=== PATIENT | female | born 1940 | race Caucasian/White ===

== ENCOUNTER → 2017-02-22 | Outpatient (REF) | payer MEDICARE, MEDICAID ==
[2017-02-22 16:47] LABS: ALBUMIN 3.6 GM/DL (3.2-5.2); ALBUMIN/GLOBULIN RATIO 0.92 (1.00-1.93); ALKALINE PHOSPHATASE 90 U/L (45-117); ALT/SGPT 10 U/L (12-78); ANION GAP 6 MEQ/L (8-16); AST/SGOT 10 U/L (15-37); BILIRUBIN,TOTAL 0.2 MG/DL (0.2-1.0); BLOOD UREA NITROGEN 13 MG/DL (7-18); CALCIUM LEVEL 8.9 MG/DL (8.8-10.2); CARBON DIOXIDE LEVEL 31 MEQ/L (21-32); CHLORIDE LEVEL 106 MEQ/L (98-107); CREATININE FOR GFR 0.77 MG/DL (0.55-1.02); GLOMERULAR FILTRATION RATE > 60.0 (>39); GLUCOSE, FASTING 79 MG/DL (83-110); POTASSIUM SERUM 4.6 MEQ/L (3.5-5.1); SODIUM LEVEL 143 MEQ/L (136-145); TOTAL PROTEIN 7.5 GM/DL (6.4-8.2)
== END ==
LOC: M SFHCCLAY 11:03
PROVIDERS: ATTEND Family Medicine
DX: E78.5 Hyperlipidemia, unspecified (principal)
CPT/HCPCS: 80053; G0463

== ENCOUNTER → 2017-12-31 | Outpatient (CLI) | payer MEDICARE, OTHER, MEDICAID | LOC: M RAD 13:18 | DX: M79.601 Pain in right arm (principal); M19.011 Primary osteoarthritis, right shoulder | CPT/HCPCS: 73030 ==

== ENCOUNTER → 2018-04-29 | Outpatient (REF) | payer MEDICARE, MEDICAID ==
[2018-04-29 16:37] LABS: BASO # 0.1 10^3/uL (0.0-0.2); BASO % 0.9 % (0.0-1.0); EOS # 0.2 10^3/uL (0.0-0.50); EOS % 2.8 % (0.0-3.0); HEMATOCRIT 41.6 % (36.0-47.0); HEMOGLOBIN 12.1 g/dl (12.0-15.5); IMMATURE GRANULOCYTE % 0.2 % (0-3.0); LYMPH # 1.6 10^3/uL (1.5-4.5); LYMPH % 28.1 % (24.0-44.0); MEAN CORPUSCULAR HEMOGLOBIN 26.1 pg (27.0-33.0); MEAN CORPUSCULAR HGB CONC 29.1 g/dl (32.0-36.5); MEAN CORPUSCULAR VOLUME 89.8 fl (80.0-96.0); MONO # 0.5 10^3/uL (0.0-0.8); MONO % 8.5 % (0.0-5.0); NEUTROPHILS # 3.4 10^3/uL (1.8-7.7); NEUTROPHILS % 59.5 % (36.0-66.0); PLATELET COUNT, AUTOMATED 240 10^3/uL (150-450); RED BLOOD COUNT 4.63 10^6/uL (4.00-5.40); RED CELL DISTRIBUTION WIDTH 15.3 % (11.5-14.5); WHITE BLOOD COUNT 5.6 10^3/uL (4.0-10.0)
[2018-04-29 16:54] LABS: ALBUMIN 3.5 GM/DL (3.2-5.2); ALKALINE PHOSPHATASE 94 U/L (45-117); ALT/SGPT 12 U/L (12-78); ANION GAP 6 MEQ/L (8-16); AST/SGOT 10 U/L (7-37); BILIRUBIN,TOTAL 0.4 MG/DL (0.2-1.0); BLOOD UREA NITROGEN 15 MG/DL (7-18); CALCIUM LEVEL 8.8 MG/DL (8.8-10.2); CARBON DIOXIDE LEVEL 31 MEQ/L (21-32); CHLORIDE LEVEL 104 MEQ/L (98-107); CREATININE FOR GFR 0.88 MG/DL (0.55-1.30); GLOMERULAR FILTRATION RATE > 60.0 (>39); GLUCOSE, FASTING 105 MG/DL (70-100); POTASSIUM SERUM 4.4 MEQ/L (3.5-5.1); SODIUM LEVEL 141 MEQ/L (136-145); TOTAL PROTEIN 7.4 GM/DL (6.4-8.2)
== END ==
LOC: M SFHCCLAY 11:25
DX: E78.5 Hyperlipidemia, unspecified (principal); J44.9 Chronic obstructive pulmonary disease, unspecified
CPT/HCPCS: 80053

== ENCOUNTER 2018-12-16 09:30 | Inpatient (IN) | payer MEDICARE, MEDICAID ==
[~2018-12-16] VITALS: Ht 162.6 cm; Wt 58.4 kg
--- NOTE | 2018-12-16 10:04 | REP ---
CT brain without contrast: History: CVA. No comparison study. Findings: Digital preliminary tumblers supervisor radiograph is unremarkable. The patient is edentulous. Bone window settings demonstrate an intact bony calvarium. There is heavy vascular calcification in the distal carotid and distal vertebral arteries bilaterally. There is thickening and sclerosis around the partially opacified left sphenoid sinus consistent with chronic left sphenoid sinusitis. Visualized paranasal sinuses are otherwise clear. No acute intraorbital abnormality is seen. There is fairly advanced diffuse cerebral atrophy. There is no evidence of intracranial hemorrhage. No extra-axial fluid collection is seen. No acute infarct, mass, or midline shift is seen. Impression: Moderate diffuse atrophy. Advanced vascular calcification. Evidence of chronic left sphenoid sinusitis. No acute intracranial abnormality. Electronically Signed by Guille Valles MD 12/16/2018 10:04 A
--- NOTE | 2018-12-16 10:18 | REP ---
Single view chest x-ray: AP sitting film. History: CVA. Comparison study: Left rib series from December 13, 2015. Findings: The lungs are symmetrically aerated and clear. Heart is not enlarged. The aorta is tortuous and calcific. There is minimal linear fibrosis in the left base unchanged. Pulmonary vasculature is not increased. Impression: No active disease. Electronically Signed by Guille Valles MD 12/16/2018 10:09 A
[2018-12-16] MEDS ORDERED: VENL75TA2 PO (10:55)
[2018-12-16] MEDS ORDERED: RANI1TAB38 PO (10:55)
[2018-12-16] MEDS ORDERED: QUET1TAB7 PO (10:55)
[2018-12-16] MEDS ORDERED: LORA0.5T11 PO (10:55)
[2018-12-16] MEDS ORDERED: MEMA1TAB2 PO (10:55)
[2018-12-16] MEDS ORDERED: ARIC1TAB PO (10:55)
[2018-12-16] MEDS ORDERED: BAYE325T12 PO (10:55)
[2018-12-16] MEDS ORDERED: SIMV40TA2 PO (10:55)
[2018-12-16 11:38] LABS: BASO % 0.9 % (0.0-1.0); EOS # 0.1 10^3/uL (0.0-0.50); EOS % 1.7 % (0.0-3.0); HEMATOCRIT 26.5 % (36.0-47.0); LYMPH # 0.6 10^3/uL (1.5-4.5); LYMPH % 15.1 % (24.0-44.0); MEAN CORPUSCULAR HEMOGLOBIN 18.6 pg (27.0-33.0); MEAN CORPUSCULAR HGB CONC 26.4 g/dl (32.0-36.5); MEAN CORPUSCULAR VOLUME 70.3 fl (80.0-96.0); MONO # 0.4 10^3/uL (0.0-0.8); MONO % 9.4 % (0.0-5.0); NEUTROPHILS # 3.1 10^3/uL (1.8-7.7); NEUTROPHILS % 72.7 % (36.0-66.0); PLATELET COUNT, AUTOMATED 289 10^3/uL (150-450); RED BLOOD COUNT 3.77 10^6/uL (4.00-5.40); WHITE BLOOD COUNT 4.2 10^3/uL (4.0-10.0)
[2018-12-16 11:47] LABS: INR 1.07
[2018-12-16 12:15] LABS: BLOOD UREA NITROGEN 10 MG/DL (7-18); CALCIUM LEVEL 8.7 MG/DL (8.8-10.2); CARBON DIOXIDE LEVEL 27 MEQ/L (21-32); CHLORIDE LEVEL 109 MEQ/L (98-107); CK-MB VALUE MASS < 1.0 NG/ML (<3.6); CPK CREATINE PHOSPHOKINASE 32 U/L (26-192); CREATININE FOR GFR 0.71 MG/DL (0.55-1.30); GLOMERULAR FILTRATION RATE > 60.0 (>32); GLUCOSE, FASTING 104 MG/DL (70-100); MB/CK RELATIVE INDEX 3.12 (< OR =4); POTASSIUM SERUM 3.9 MEQ/L (3.5-5.1); SODIUM LEVEL 143 MEQ/L (136-145); TROPONIN I < 0.02 NG/ML (< 0.10)
[2018-12-16 14:33] LABS: FERRITIN 10 NG/ML (8-252); IRON (FE) 12 UG/DL (50-170); PERCENT SATURATION 3.1 % (13.2-45.0); TOTAL IRON BINDING CAPACITY 386 UG/DL (250-450)
[2018-12-16 14:46] LABS: VITAMIN B12 LEVEL 225 PG/ML
[2018-12-16 15:52] LABS: HEMATOCRIT 25.5 % (36.0-47.0); MEAN CORPUSCULAR HEMOGLOBIN 19.2 pg (27.0-33.0); MEAN CORPUSCULAR HGB CONC 26.7 g/dl (32.0-36.5); MEAN CORPUSCULAR VOLUME 71.8 fl (80.0-96.0); PLATELET COUNT, AUTOMATED 264 10^3/uL (150-450); RED BLOOD COUNT 3.55 10^6/uL (4.00-5.40); WHITE BLOOD COUNT 3.8 10^3/uL (4.0-10.0)
[2018-12-16 15:56] LABS: HEMOGLOBIN 6.8 g/dl (12.0-15.5)
[2018-12-16 16:22] VITALS: BP 146/64
[2018-12-16] MEDS ORDERED: CYANOCOBALAMIN 1,000 MCG/ML VIAL (J3420) IM SCH (18:00)
--- NOTE | 2018-12-16 20:18 | REP ---
Bilateral carotid artery duplex ultrasound: Peak flow velocity analysis: RIGHT LEFT ICA Peak flow velocity cm/sec 120 138 ICA Diastolic flow velocity cm/sec 21 21 ICA/CCA Ratio 2.24 1.32 ECA Peak flow velocity cm/sec 115 116 CCA Peak flow velocity cm/sec 66.5 90.0 The peak flow velocities are in the normal range bilaterally. However, there is significant stenosis of the bulbs bilaterally from large atheromatous plaquing. There are no standard peak flow velocity values for the bulb, however ,on the 2-D and color Doppler images there appears to be severe stenosis in the bulbs bilaterally, more severe on the right than the left . Consider CTA or MRA for further evaluation. No other significant stenoses are identified. The left ICA is tortuous. The study is technically difficult because of the patient's inability to follow directions and patient combativeness. Impression: Severe stenosis in the bulbs bilaterally, more severe on the right than the left. Consider follow-up MRA or CTA for further evaluation. Electronically Signed by Arvind Hendrickson MD 12/16/2018 08:09 P
[2018-12-16] MEDS ORDERED: DONEPEZIL 5 MG TAB PO SCH (21:00)
[2018-12-16] MEDS ORDERED: SIMVASTATIN 40 MG TAB PO SCH (21:00)
--- NOTE | 2018-12-16 21:37 | ECHO ---
DATE OF PROCEDURE: 12/16/2018 REFERRING PHYSICIAN: Dr. Helen Jones INDICATION: Syncope. Height 163 cm, weight 60 kg. DIMENSIONS: IVS: 1.3 LV: 4.0 LVPW: 1.3 LA: 3.3 Aorta: 3.2 IVC: 0.8 Mitral E wave velocity: 88 A wave: 120 E prime septal: 7.0 E prime lateral: 8.9 FINDINGS: The study is of fair technical quality. The patient is in sinus rhythm. Left ventricle is normal size and has hyperdynamic contractility, I estimate left ventricular ejection fraction (LVEF) 65-70%. I cannot reliably rule out segmental wall motion abnormalities because only apical views were of good quality and consequently not all cardiac leigh were well seen. Right ventricle does not appear grossly enlarged. Left atrium is at least mildly enlarged, right atrium was poorly visualized but grossly appears normal. Aortic valve is heavily sclerotic. There are no significant restriction of mobility based on 2D views. There is severe posterior mitral leaflet prolapse. Mobility of leaflets seems preserved. Tricuspid valve was poorly visualized but grossly appears normal. Pulmonic valve was not well seen. No pericardial effusion is noted. Inferior vena cava is of small caliber. Aortic root is normal. Aortic arch was not well seen. Abdominal aorta appears grossly normal. Doppler interrogation of aortic valve reveals mild insufficiency and no significant stenosis. There is possibly severe mitral insufficiency with very eccentric MR jet. There is [id number] tricuspid insufficiency. Calculated pulmonary artery pressure is around 30 corresponding to mildly elevated pulmonary artery pressure. Mitral inflow pattern and tissue Doppler imaging of mitral annulus revealed grade 1 diastolic dysfunction. CONCLUSIONS: 1. Study is of rather poor technical quality with only apical views being good. 2. Normal left ventricular (LV) size with hyperdynamic LV systolic function and grade 1 diastolic dysfunction. 3. Aortic sclerosis with no significant stenosis and mild insufficiency. 4. Severe posterior mitral leaflet prolapse with probably severe mitral insufficiency. 5. Normal central venous pressure. 6. Probably mild pulmonary hypertension. COMMENT: Subacute bacterial endocarditis (SBE) prophylaxis is not recommended. Study does not provide obvious explanation for syncopal event. If the patient is symptomatic, then further evaluation for mitral insufficiency should be pursued provided the patient is still deemed to be a surgical candidate.
[2018-12-16 22:00] VITALS: BP 158/64
[2018-12-16] MEDS: MEMANTINE 5MG TABLET (NAMENDA) PO SCH (23:25)
[2018-12-16] MEDS: QUEtiapine FUMARATE 25 MG TAB PO SCH (23:25)
[2018-12-16] MEDS: VENLAFAXINE 37.5 MG TAB PO SCH (23:25)
--- NOTE | 2018-12-17 05:44 | ECGEPIP ---
[facility] - ED Test Date: 2018-12-16 Pat Name: CHRISTIANA MINER Department: Room: - Gender: Female Inspector Raw Quartz: elissa : 1940 Requested By: Keyla Mora Order Number: [id number] Reading MD: Connor Lomas Measurements Intervals [place] Rate: 90 P: 63 MN: 145 QRS: QRSD: 78 T: QT: 368 QTc: 451 Interpretive Statements SINUS RHYTHM WITH OCCASIONAL VENTRICULAR PREMATURE COMPLEXES POSSIBLE LEFT ATRIAL ENLARGEMENT POOR R WAVE PROGRESSION MINIMAL ST DEPRESSION NO PRIORS FOR COMPARISON Electronically Signed on 12-17-2018 5:43:44 EDT by Connor Lomas
[2018-12-17 06:00] VITALS: BP 131/88
--- NOTE | 2018-12-17 06:10 | HPEPDOC ---
General Date of Admission Dec 16, 2018 at 13:46 Date of Service: Dec 16, 2018 Chief Complaint The patient is a 78-year-old female admitted with a reason for visit of Anemia Syncope And Collapse. Source: Family, RN/MD, Old records, Caregiver Exam Limitations: Dementia Severity: Moderate History of Present Illness 78 year old female with dementia, hyperlipidemia, COPD, anxiety and depression was brought in from [facility] day care for a presyncopal episode that she had there. As per daughter who was at bedside said that over the past 2 days the patient has been very tired, sleepy . She also has been refusing to eat.Prior to that sh pilar was in her usual state of health. Thee has been no overt bleeding, no black tarry stools, no hematochezia, no vaginal bleeding , no hematuria. There has been no fever or chills, no vomiting or diarrhea. She went to her [facility] adult day care today as usual . As per staff there she was noted to be pale and she almost passed out when she stood up but they were able to grab her so she did not fall. They lowered her to the floor. There was no injury. Then she was brought to the ED. The patient denied any complaints. She did not know where she was. When i told her that she is in the hospital she was very surprised and asked why she was here. She says she just feels sleepy and cold and wanted to sleep. She denied and dizziness or light headedness. As per daughter she is ambulatory, recognizes family, able to eat by herself and eats regular food. In the ED she was found to be anemic with an Hb of 7.0 repeat one was 6.8 which was down from 12 last year. She was admitted for syncope possibly due to symptomatic anemia. Home Medications Scheduled Aspirin (Aspirin) 325 Mg Tablet, 325 MG PO DAILY, (Reported) Cyanocobalamin (Vitamin B-12) (Vitamin B-12) 250 Mcg Tablet, 1 TAB PO DAILY Donepezil HCl (Aricept) 5 Mg Tablet, 5 MG PO QHS, (Reported) Ferrous Sulfate (Ferrous Sulfate) 325 Mg Tablet.dr, 325 MG PO BID Memantine HCl (Memantine HCl) 10 Mg Tablet, 10 MG PO BID, (Reported) Quetiapine Fumarate (Quetiapine Fumarate) 25 Mg Tablet, 25 MG PO BID, (Reported) Ranitidine Hcl (Ranitidine HCl) 150 Mg Tablet, 1 TAB PO DAILY, (Reported) Simvastatin (Simvastatin) 40 Mg Tablet, 40 MG PO QHS, (Reported) Venlafaxine HCl (Venlafaxine HCl) 75 Mg Tablet, 75 MG PO BID, (Reported) Scheduled PRN Lorazepam (Lorazepam) 0.5 Mg Tablet, 0.5 MG PO Q6H PRN for ANXIETY, (Reported) Allergies Coded Allergies: No Known Allergies (Unverified , 12/16/18) Past Medical History Medical History dementia, hyperlipidemia, COPD, anxiety and depression Surgical History AAA REPAIR- ENDOGRAFT- DR. ORELLANA 2013 CHOLECYSTECTOMY X 2 Family History FATHER: , UNKNOWN MOTHER: 83 YRS, BREAST CANCER, [place], DIAGNOSEDWITH HYPERTENSION, HEART DISEASE, PSYCHIATRIC CONDITIONS, OTHER SIBLINGS: 79 YRS, [place] SON: ALIVE, DIAGNOSED WITH DIABETES, HYPERTENSION, HEART DISEASE DAUGHTER: ALIVE, DIAGNOSED WITH HYPERTENSION Social History * Smoker: quit greater than 1 year Alcohol: Denies Drugs: denies A-FIB/CHADSVASC A-FIB History Current/History of A-Fib/PAF?: No Review of Systems Constitutional: Reports: Weakness, Fatigue, Lethargy; Denies: Chills, Fever, Malaise, Night Sweats Eyes: Denies: Pain, Vision change ENT: Denies: Head Aches, Ear Pain, Dysphagia Skin: Reports: Other (pale); Denies: Rash, Lesions, Jaundice, Bruising, Itching, Dry, Breakdown, Nail Changes Pulmonary: Denies: Dyspnea, Cough Cardiovascular: Denies: Chest Pain, Palpitations, Orthopnea, Paroxysmal Noc. Dyspnea, Lt Headedness Gastrointestinal: Denies: Nausea, Vomiting, Abdominal Pain, Diarrhea Genitourinary: Denies: Dysuria, Frequency, Incontinence, Retention Hematologic: Denies: Bruising, Bleeding Excessively Psych: Reports: Anxiety, Depression, Memory Issues Physical Examination General Exam: Positive: Alert, Cooperative, No Acute Distress Eye Exam: Positive: PERRLA, Conjunctiva & lids normal, EOMI; Negative: Sclera icteric ENT Exam: Positive: Atraumatic, Mucous membr. moist/pink, Pharynx Normal Neck Exam: Positive: Supple; Negative: JVD, thyromegaly Chest Exam: Positive: Clear to auscultation, Normal air movement Heart Exam: Positive: Rate Normal, Regular Rhythm, Normal S1, Normal S2; Negative: Murmurs, Rubs Telemetry: Positive: No significant arrhythmia Abdomen Exam: Positive: Normal bowel sounds, Soft; Negative: Tenderness, Hepatospenomegaly Extremity Exam: Positive: Normal pulses; Negative: Clubbing, Cyanosis, Edema Skin Exam: Positive: Nl turgor and temperature; Negative: Breakdown, Lesion Neuro Exam: Positive: Normal Speech, Strength at 5/5 X4 ext, Normal Tone, Sensation Intact Vital Signs Vital Signs Date Time Temp Pulse Resp B/P (MAP) Pulse Ox O2 Delivery O2 Flow Rate FiO2 12/16/18 15:03 94 16 136/75 (95) 94 Room Air 12/16/18 15:03 98.5 Laboratory Data Labs 24H Laboratory Tests 2 12/16/18 10:58: Bedside Glucose (Misc Panel) 114H 12/16/18 11:25: Anion Gap 7L, Glomerular Filtration Rate > 60.0, Blood Urea Nitrogen 10, Creatinine 0.71, Sodium Level 143, Potassium Level 3.9, Chloride Level 109H, Carbon Dioxide Level 27, Calcium Level 8.7L, Total Creatine Kinase 32, Iron Level 12L, Total Iron Binding Capacity 386, Transferrin % Saturation 3.1L, Ferritin 10, Creatine Kinase MB < 1.0, Creatine Kinase MB Relative Index 3.12, Troponin I < 0.02, Vitamin B12 Level 225, Folate 21.0 12/16/18 11:26: Immature Granulocyte % (Auto) 0.2, White Blood Count 4.2, Red Blood Count 3.77L, Hemoglobin 7.0L, Hematocrit 26.5L, Mean Corpuscular Volume 70.3L, Mean Corpuscular Hemoglobin 18.6L, Mean Corpuscular Hemoglobin Concent 26.4L, Red Cell Distribution Width 18.1H, Platelet Count 289, Neutrophils (%) (Auto) 72.7H, Lymphocytes (%) (Auto) 15.1L, Monocytes (%) (Auto) 9.4H, Eosinophils (%) (Auto) 1.7, Basophils (%) (Auto) 0.9, Neutrophils # (Auto) 3.1, Lymphocytes # (Auto) 0.6L, Monocytes # (Auto) 0.4, Eosinophils # (Auto) 0.1, Basophils # (Auto) 0.0, Nucleated Red Blood Cells % (auto) 0.0, Prothrombin Time 14.0, Prothromb Time International Ratio 1.07, Activated Partial Thromboplast Time 24.0L CBC/BMP Laboratory Tests 12/16/18 11:25 Calcium Level 8.7 L, Total Creatine Kinase 32 12/16/18 11:26 Red Blood Count 3.77 L, Mean Corpuscular Volume 70.3 L, Mean Corpuscular Hemoglobin 18.6 L, Mean Corpuscular Hemoglobin Concent 26.4 L, Red Cell Distribution Width 18.1 H, Neutrophils (%) (Auto) 72.7 H, Lymphocytes (%) (Auto) 15.1 L, Monocytes (%) (Auto) 9.4 H, Eosinophils (%) (Auto) 1.7, Basophils (%) (Auto) 0.9, Neutrophils # (Auto) 3.1, Lymphocytes # (Auto) 0.6 L, Monocytes # (Auto) 0.4, Eosinophils # (Auto) 0.1, Basophils # (Auto) 0.0 Assessment/Plan 78 year old female with dementia, hyperlipidemia, COPD, anxiety and depression was brought in from [facility] day care for a presyncopal episode that she had there. As per daughter who was at bedside said that over the past 2 days the patient has been very tired, sleepy . She also has been refusing to eat.Prior to that she was in her usual state of health. Thee has been no overt bleeding, no black tarry stools, no hematochezia, no vaginal bleeding , no hematuria. There has been no fever or chills, no vomiting or diarrhea. She went to her [facility] adult day care today as usual . As per staff there she was noted to be pale and she almost passed out when she stood up but they were able to grab her so she did not fall. They lowered her to the floor. There was no injury. Then she was brought to the ED. The patient denied any complaints. She did not know where she was. When i told her that she is in the hospital she was very surprised and asked why she was here. She says she just feels sleepy and cold and wanted to sleep. She denied and dizziness or light headedness. As per daughter she is ambulatory, recognizes family, able to eat by herself and eats regular food. In the ED she was found to be anemic with an Hb of 7.0 repeat one was 6.8 which was down from 12 last year. She was admitted for syncope possibly due to symptomatic anemia. Syncope/Presyncope this is probably due to anemia however will rule out other causes CT negative for any acute events. telemetry, carotid US, echo, orthostatic vitals Symptomatic anemia Patient has iron deficiency and vit B12 deficiency will give 2 units of PRBC give venofer, IM vit b12 possibly due to dietary deficiency. will check stool for occult blood. She has never had a colonoscopy. I discussed with daughter at bedside about the possibility of a colonic malignancy or a bone marrow defect that could also cause this anemia and that we may have to test those out by colonoscopy or bone marrow biopsy. She indicated the patent would not want to be treated for any cancer even if there is one. Will again address this if stool occult blood comes back positive. Advanced Dementia continue home meds. If her appetite remains poor would consider stopping donepezil which is known to cause anorexia. Sitter as patient pulling out IVs. Anxiety and depression continue venlafaxine and seroquel Hyperlipidemia continue statin COde: DNR and DNI Plan / VTE VTE Prophylaxis Ordered?: Yes MODE PIERCE MD Dec 16, 2018 16:01
[2018-12-17 06:14] LABS: BASO % 0.9 % (0.0-1.0); EOS # 0.1 10^3/uL (0.0-0.50); EOS % 3.3 % (0.0-3.0); HEMATOCRIT 33.1 % (36.0-47.0); LYMPH # 1.2 10^3/uL (1.5-4.5); LYMPH % 28.7 % (24.0-44.0); MEAN CORPUSCULAR HEMOGLOBIN 21.8 pg (27.0-33.0); MEAN CORPUSCULAR HGB CONC 29.6 g/dl (32.0-36.5); MEAN CORPUSCULAR VOLUME 73.7 fl (80.0-96.0); MONO # 0.5 10^3/uL (0.0-0.8); MONO % 12.4 % (0.0-5.0); NEUTROPHILS # 2.3 10^3/uL (1.8-7.7); NEUTROPHILS % 54.5 % (36.0-66.0); PLATELET COUNT, AUTOMATED 229 10^3/uL (150-450); RED BLOOD COUNT 4.49 10^6/uL (4.00-5.40); WHITE BLOOD COUNT 4.3 10^3/uL (4.0-10.0)
[2018-12-17 06:26] LABS: HEMOGLOBIN 9.8 g/dl (12.0-15.5)
[2018-12-17 06:38] LABS: BLOOD UREA NITROGEN 9 MG/DL (7-18); CALCIUM LEVEL 8.2 MG/DL (8.8-10.2); CARBON DIOXIDE LEVEL 28 MEQ/L (21-32); CHLORIDE LEVEL 111 MEQ/L (98-107); CREATININE FOR GFR 0.69 MG/DL (0.55-1.30); GLOMERULAR FILTRATION RATE > 60.0 (>32); GLUCOSE, FASTING 85 MG/DL (70-100); POTASSIUM SERUM 3.5 MEQ/L (3.5-5.1); SODIUM LEVEL 144 MEQ/L (136-145)
[2018-12-17] MEDS: VENLAFAXINE 37.5 MG TAB PO SCH (08:48)
[2018-12-17] MEDS: MEMANTINE 5MG TABLET (NAMENDA) PO SCH (08:48)
[2018-12-17] MEDS: QUEtiapine FUMARATE 25 MG TAB PO SCH (08:48)
[2018-12-17] MEDS ORDERED: IRON SUCROSE 500 MG in NS 250 ML IV ONE (09:00)
[2018-12-17] MEDS ORDERED: ASPIRIN 325 MG TAB PO SCH (09:00)
[2018-12-17] MEDS ORDERED: FERR325T3 PO (11:12)
[2018-12-17] MEDS ORDERED: VITA250T50 PO (11:12)
--- NOTE | 2018-12-17 16:58 | DS.PDOC ---
Discharge Summary General Date of Admission Dec 16, 2018 at 13:46 Date of Discharge 12/17/2018 Discharge Summary PROCEDURES PERFORMED DURING STAY: [None]. ADMITTING DIAGNOSES / DISCHARGE DIAGNOSES: Syncope / Presyncope - likely 2/2 symptomatic anemia Severe carotid stenosis Symptomatic anemia Advanced Dementia Anxiety and depression Hyperlipidemia DVT prophylaxis COMPLICATIONS/CHIEF COMPLAINT: Pre-syncope / Syncope HISTORY OF PRESENT ILLNESS: Patient is an 78-year-old female with a past history of severe dementia, dyslipidemia, COPD, anxiety/depression was brought to the ER from [facility] for presyncopal / syncopal episode. As per the daughter, patient has reported poor oral intake. . She has reported that the patient has not experienced any overt bleeding, dark stools, vaginal bleeding or blood in her urine. . She is not expressing fevers or chills at home. Patient did experience a lightheadedness and was lowered to the floor and did not experience any trauma. Upon arrival to the emergency room, patient was found to have a hemoglobin of 7.0. Repeat revealed it was 6.8 which is down from her baseline of approximately 12, one year ago. HOSPITAL COURSE: Syncope / Presyncope - likely 2/2 symptomatic anemia - CT head 12/16: Moderate diffuse atrophy. Advanced vascular calcification. Evidence of chronic left sphenoid sinusitis. No acute intracranial abnormality. - ECHO 12/16: Hyperdynamic LV systolic function, G1 DD, aortic sclerosis with no significant stenosis and mild insufficiency, severe posterior mitral leaflet prolapse and probably severe mitral insufficiency, normal CVP probably mild pulmonary HTN - Telemetry has been negative Severe carotid stenosis - Imaging had revealed severe carotid stenosis - I discussed these findings with the patient's daughter was also healthcare proxy; advised her that the ultrasound report had indicated that she should get MRI or CT scan imaging for follow-up. However, at this time after proxy and indicated that her mother would not want to pursue any intervention and this would not change to current management - At this point, will defer any evaluation / intervention Symptomatic anemia - Hg on admission fo 6.8; down from a baseline of 12 - Has improved appropriately after a transfusion of 2 units PRBC - Iron panel consistent with deficiency - Discussed with daughter/ healthcare proxy , the need for colonoscopy; however, at this point they would like to defer this and continue following the blood counts as an outpatient - I have advised the daughter that she will require repeat hemoglobin monitoring to ensure that her hemoglobin remained stable - c/w Supplementation with Iron and B12 as an outpatient - We'll have outpatient follow-up with patient's primary care provider, Dr. Kingston Advanced Dementia - c/w Donepezil, Memantine Anxiety and depression - c/w Venlafaxine and Quetiapine Hyperlipidemia - c/w Simvastatin DVT prophylaxis - c/w MARCELA / Sequentials DISCHARGE MEDICATIONS: Please see below. ALLERGIES: Please see below. PHYSICAL EXAMINATION ON DISCHARGE: Vitals (See below) General: Lying in bed, no acute distress, comfortable, Awake / Alert HEENT: NC, AT CVS: +S1S2 Lungs: Fair air entry b/l, -w/r/r Abdomen: Soft, ND, NT Extremities: - Edema, - Calf tenderness LABORATORY DATA: Please see below. IMAGING: - Carotid US 12/16: Severe stenosis in the bulbs bilaterally, more severe on the right than the left. Consider follow-up MRA or CTA for further evaluation. - CXR 12/16: No active disease. - CT head 12/16: Moderate diffuse atrophy. Advanced vascular calcification. Evidence of chronic left sphenoid sinusitis. No acute intracranial abnormality. PROGNOSIS: Fair ACTIVITY: [As tolerated]. DISCHARGE PLAN: Follow up with Dr. Randall within 7 days Remain compliant with treatment plan and medications Return to the ER if you experience any problems DISPOSITION: Home, Self-Care with / care by family DISCHARGE CONDITION: [Stable]. CODE STATUS: - DNR / DNI TIME SPENT ON DISCHARGE: 45 minutes Vital Signs/I&Os Vital Signs Date Time Temp Pulse Resp B/P (MAP) Pulse Ox O2 Delivery O2 Flow Rate FiO2 12/17/18 06:45 12/17/18 06:00 97.4 82 18 94 12/16/18 15:03 Room Air I&O- Last 24 Hours up to 6 AM 12/17/18 06:00 Intake Total 784 ml Output Total 0 ml Balance 784 ml Laboratory Data Labs 24H Laboratory Tests 2 12/17/18 05:57: Immature Granulocyte % (Auto) 0.2, White Blood Count 4.3, Red Blood Count 4.49, Hemoglobin 9.8#L, Hematocrit 33.1L, Mean Corpuscular Volume 73.7L, Mean Corpuscular Hemoglobin 21.8L, Mean Corpuscular Hemoglobin Concent 29.6L, Red Cell Distribution Width 19.0H, Platelet Count 229, Neutrophils (%) (Auto) 54.5, Lymphocytes (%) (Auto) 28.7, Monocytes (%) (Auto) 12.4H, Eosinophils (%) (Auto) 3.3H, Basophils (%) (Auto) 0.9, Neutrophils # (Auto) 2.3, Lymphocytes # (Auto) 1.2L, Monocytes # (Auto) 0.5, Eosinophils # (Auto) 0.1, Basophils # (Auto) 0.0, Nucleated Red Blood Cells % (auto) 0.0, Anion Gap 5L, Glomerular Filtration Rate > 60.0, Blood Urea Nitrogen 9, Creatinine 0.69, Sodium Level 144, Potassium Level 3.5, Chloride Level 111H, Carbon Dioxide Level 28, Calcium Level 8.2L CBC/BMP Laboratory Tests 12/17/18 05:57 Red Blood Count 4.49, Mean Corpuscular Volume 73.7 L, Mean Corpuscular Hemoglobin 21.8 L, Mean Corpuscular Hemoglobin Concent 29.6 L, Red Cell Distribution Width 19.0 H, Neutrophils (%) (Auto) 54.5, Lymphocytes (%) (Auto) 28.7, Monocytes (%) (Auto) 12.4 H, Eosinophils (%) (Auto) 3.3 H, Basophils (%) (Auto) 0.9, Neutrophils # (Auto) 2.3, Lymphocytes # (Auto) 1.2 L, Monocytes # (Auto) 0.5, Eosinophils # (Auto) 0.1, Basophils # (Auto) 0.0, Calcium Level 8.2 L Discharge Medications Scheduled Aspirin (Aspirin) 325 Mg Tablet, 325 MG PO DAILY, (Reported) Cyanocobalamin (Vitamin B-12) (Vitamin B-12) 250 Mcg Tablet, 1 TAB PO DAILY Donepezil HCl (Aricept) 5 Mg Tablet, 5 MG PO QHS, (Reported) Ferrous Sulfate (Ferrous Sulfate) 325 Mg Tablet.dr, 325 MG PO BID Memantine HCl (Memantine HCl) 10 Mg Tablet, 10 MG PO BID, (Reported) Quetiapine Fumarate (Quetiapine Fumarate) 25 Mg Tablet, 25 MG PO BID, (Reported) Ranitidine Hcl (Ranitidine HCl) 150 Mg Tablet, 1 TAB PO DAILY, (Reported) Simvastatin (Simvastatin) 40 Mg Tablet, 40 MG PO QHS, (Reported) Venlafaxine HCl (Venlafaxine HCl) 75 Mg Tablet, 75 MG PO BID, (Reported) Scheduled PRN Lorazepam (Lorazepam) 0.5 Mg Tablet, 0.5 MG PO Q6H PRN for ANXIETY, (Reported) Allergies Coded Allergies: No Known Allergies (Unverified , 12/16/18) BESSY PÉREZ MD Dec 17, 2018 16:57
== END 2018-12-17 12:13 | disposition home or self-care (01) | DRG 812 ==
LOC: M ED 09:30 → M ED INP 13:46 → M MSPAV 16:22
PROVIDERS: ADMIT Internal Medicine Nephrology; ATTEND Internal Medicine
PROC: 30233N1 Transfusion of Nonautologous Red Blood Cells into Peripheral Vein, Percutaneous Approach (ICD-10-PCS; principal; 2018-12-16)
DX: D64.9 Anemia, unspecified (principal); R55 Syncope and collapse; F03.90 Unspecified dementia, unspecified severity, without behavioral disturbance, psychotic disturbance, mood disturbance, and anxiety; F41.9 Anxiety disorder, unspecified; F32.9 Major depressive disorder, single episode, unspecified; E78.5 Hyperlipidemia, unspecified; J44.9 Chronic obstructive pulmonary disease, unspecified; I27.20 Pulmonary hypertension, unspecified; Z79.82 Long term (current) use of aspirin; Z79.899 Other long term (current) drug therapy